=== PATIENT | male | born 1975 | race African-American/Black ===

== ENCOUNTER 2020-05-06 23:27 | Emergency (ER) | payer MEDICAID ==
[~2020-05-06] VITALS: Ht 170.2 cm; Wt 73.0 kg
[2020-05-07 00:26] LABS: BASOPHILS % 0.9 % (0.0-2.0); EOSINOPHILS % 0.4 % (0.0-5.0); HEMATOCRIT. 43.4 % (42.0-52.0); LYMPHOCYTES % 17.5 % (20.0-50.0); MEAN CORPUSCULAR HEMOGLOBIN 30.7 pg (28.0-32.0); MEAN CORPUSCULAR VOLUME 88.8 fL (80.0-94.0); MEAN PLATELET VOLUME 9.9 fl (7.4-10.4); MONOCYTES % 9.4 % (2.0-8.0); NEUTROPHILS % 71.8 % (40.0-76.0); PLATELET 219 x1000/uL (130-400); RED BLOOD CELL COUNT 4.89 mill/uL (4.7-6.1); RED CELL DISTRIBUTION WIDTH 14.5 % (11.6-14.6)
[2020-05-07 00:31] LABS: CHLORIDE 95 mEq/L (98-107)
[2020-05-07 00:35] LABS: ETHANOL BLOOD < 10 mg/dL
[2020-05-07 00:58] LABS: CLARITY URINE CLEAR (CLEAR); COLOR URINE YELLOW (YELLOW); KETONES URINE TRACE (NEGATIVE); LEUKOCYTE ESTERASE URINE NEGATIVE (NEGATIVE); NITRITE URINE NEGATIVE (NEGATIVE); OCCULT BLOOD URINE NEGATIVE (NEGATIVE); PROTEIN URINE NEGATIVE (NEGATIVE); SPECIFIC GRAVITY URINE 1.011 (1.005-1.030); UROBILINOGEN URINE 0.2 E.U./dL (0.2-1.0)
[2020-05-07 01:13] LABS: *AMPHETAMINES SCREEN URINE NEGATIVE (NEGATIVE); *BARBITURATES SCREEN URINE NEGATIVE (NEGATIVE); *BENZODIAZEPINES SCREEN URINE NEGATIVE (NEGATIVE); *COCAINE SCREEN URINE NEGATIVE (NEGATIVE); METHADONE URINE SCREEN NEGATIVE (NEGATIVE); OPIATES URINE SCREEN NEGATIVE (NEGATIVE)
[2020-05-07 01:14] LABS: CANNABINOID URINE SCREEN PRESUMTIVE POSITIVE (NEGATIVE); PHENCYCLIDINE URINE SCREEN NEGATIVE (NEGATIVE)
[2020-05-07] MEDS ORDERED: OLANZAPINE 10 MG/VIAL IM ONE ×2 (01:30→13:45)
[2020-05-07] MEDS ORDERED: LORAZEPAM 1MG TABLET PO ONE ×2 (09:45)
[2020-05-07] MEDS ORDERED: LORAZEPAM 2MG/ML CPJ IM STA (13:42)
[2020-05-08] MEDS ORDERED: OLANZAPINE 10 MG/VIAL IM ONE ×2 (00:30→05:45)
[2020-05-09] MEDS: QUETIAPINE FUMARATE 50MG TABLET PO SCH ×5 (09:30→22:24)
[2020-05-09] MEDS ORDERED: LORAZEPAM 2MG/ML CPJ IM STA (12:25)
[2020-05-09] MEDS ORDERED: OLANZAPINE 10 MG/VIAL IM ONE (12:30)
[2020-05-09] MEDS ORDERED: LORAZEPAM 2MG/ML CPJ IM PRN (12:30)
[2020-05-09] MEDS ORDERED: HALOPERIDOL LACTATE 5MG/ML VIAL IM ONE (12:30)
[2020-05-09] MEDS ORDERED: LITHIUM CARBONATE 150 MG CAPSULE PO SCH (21:00)
[2020-05-09] MEDS ORDERED: DIVALPROEX SODIUM 500MG ER TABLET PO SCH (21:00)
[2020-05-10] MEDS ORDERED: OLANZAPINE 10 MG/VIAL IM ONE (01:45)
[2020-05-10] MEDS ORDERED: DIPHENHYDRAMINE 50MG/ML VIAL IM ONE (01:45)
[2020-05-10] MEDS: QUETIAPINE FUMARATE 50MG TABLET PO SCH ×3 (10:39→17:00)
[2020-05-10 17:59] VITALS: BP 140/75
[2020-05-10] MEDS ORDERED: LITHIUM CARBONATE 150 MG CAPSULE PO SCH (21:00)
[2020-05-10] MEDS ORDERED: DIVALPROEX SODIUM 500MG ER TABLET PO SCH (21:00)
== END 2020-05-10 18:00 ==
LOC: ER 23:27
DX: F23 Brief psychotic disorder (principal); R26.9 Unspecified abnormalities of gait and mobility; F31.9 Bipolar disorder, unspecified; F43.10 Post-traumatic stress disorder, unspecified; R45.851 Suicidal ideations; F12.10 Cannabis abuse, uncomplicated; Z78.1 Physical restraint status; Z75.1 Person awaiting admission to adequate facility elsewhere
CPT/HCPCS: 36415; 93005; 96372; 99285; J1200; J1630; J2060; J3490; Z7610